=== PATIENT | male | born 1945 | race Native Hawaiian/Other Pacific Islander ===

== ENCOUNTER 2018-12-29 09:18 | Outpatient (CLI) | payer MEDICARE, OTHER ==
[2018-12-29 11:19] LABS: Chol/HDL Ratio 3.54 %
== END 2018-12-29 09:19 | disposition home or self-care (01) ==
LOC: LAB 09:18
PROVIDERS: ATTEND Internal Medicine
DX: E78.5 Hyperlipidemia, unspecified (principal); R73.03 Prediabetes
CPT/HCPCS: 36415; 80061; 83036

== ENCOUNTER 2019-05-30 09:44 | Outpatient (CLI) | payer MEDICARE, OTHER | END 2019-05-30 09:45 | disposition home or self-care (01) | LOC: LAB 09:44 | PROVIDERS: ATTEND Internal Medicine | DX: R73.03 Prediabetes (principal); E78.5 Hyperlipidemia, unspecified | CPT/HCPCS: 36415; 83525 ==